=== PATIENT | female | born 1985 | race Caucasian/White ===

== ENCOUNTER 2024-03-08 23:02 | Emergency (ER) | payer BC ==
[~2024-03-08] VITALS: Ht 160 cm; Wt 84.1 kg
[2024-03-09] MEDS ORDERED: Ibuprofen 400 MG TAB PO ONE (00:15)
[2024-03-09] MEDS ORDERED: Benzonatate 100 MG CAP PO ONE (01:00)
[2024-03-09] MEDS ORDERED: dexAMETHasone 10 MG/ML VIAL PO ONE (01:00)
[2024-03-09] MEDS ORDERED: TESSALON P100 MG/CAP PO (01:28)
[2024-03-09] MEDS ORDERED: PAXLOVID CO-PA1 EACH PO (01:28)
[2024-03-09 01:38] VITALS: BP 129/84; PULSE 98; TEMP 99.5
== END 2024-03-09 01:38 | disposition home or self-care (01) ==
LOC: COL.ER 23:02
DX: U07.1 COVID-19 (principal)
CPT/HCPCS: J1100